=== PATIENT | female | born 1950 | race Hispanic/Latino ===

== ENCOUNTER → 2020-10-11 | Outpatient (CLI) | payer MEDICARE, OTHER ==
[~2020-10-11] MED LIST: ASPIRIN EC81 MG PO; ATENOLOL50 MG PO; FOLIC ACID1 MG PO; FREESTYLE LITE TEST; GLIMEPIRIDE4 MG PO; IOPAMIDOL 370 MG/ML 200 ML INFUS..BTL INJ ONE; LEVOTHYROXINE100 MCG PO; LOSARTAN POTASS50 MG PO; METFORMIN HCL500 MG PO; OMEPRAZOLE40 MG PO; SIMVASTATIN20 MG PO; SODIUM CHLORIDE 0.9% 50ML 50 ML ONE; ULTRAM 50MG50 MG PO
== END ==
LOC: CT 08:50
PROVIDERS: ATTEND Podiatrist Foot & Ankle Surgery
DX: M85.471 Solitary bone cyst, right ankle and foot (principal)
CPT/HCPCS: 73701; Q9967